=== PATIENT | female | born 2000 | race Caucasian/White ===

== ENCOUNTER 2025-08-04 11:22 | Emergency (ER) | payer OTHER, SELFPAY ==
[2025-08-04 11:26] VITALS: BP 110/80
--- NOTE | 2025-08-04 12:04 | ED.GENMED ---
History of Present Illness
General
Chief Complaint: Headache
Source: patient
Exam Limitations: none
Time Seen by Provider: 08/04/25 11:51
History of Present Illness
History of Present Illness:
25-year-old female presents complaining of persistent left-sided headache over the past 2 months. She recently moved here from [facility]. She was having headaches prior to moving here. She notes she is sensitive to light. There are times where
it is worse than others. She has tried [id number] medications without relief. No vision change. No fever or rash. No other medical problems.
Phy Exam
Physical Exam
Physical Exam:
General: Well-appearing female no acute respiratory distress
HEENT: Normal cephalic atraumatic pupils equal round react to light posterior pharynx patent no erythema or exudate neck is supple
Heart: Regular rate and rhythm
Lungs: Clear no wheeze
Abdomen is soft nontender
Neurologic exam: No nuchal rigidity or meningeal signs alert and oriented no focal deficit
Skin is warm no rash
Course
Orders/Labs/Results
Orders:
Orders
08/04/25 12:02
Diphenhydramine [Benadryl] 25 mg IV NOW STA
Prochlorperazine [Compazine] 10 mg IV NOW STA
08/04/25 12:03
CT Head W/o Iv Contrast Urgent
Comment:
Reason For Exam: headache
Test Result ONCE
08/04/25 12:16
Complete Blood Count/With Diff Urgent
Comprehensive Metabolic Panel Urgent
HCG, Serum Qualitative Screen Urgent
Sed Rate [Erythrocyte Sed Rate] Stat
Abnormal Lab Results
08/04/25
12:16
RBC 4.07 L 10^6/uL
(4.20-5.40)
Hct 36.4 L %
(37.0-47.0)
Chloride 111 H mmol/L
(98-107)
Creatinine 0.5 L mg/dL
(0.6-1.0)
08/04/25 12:16
08/04/25 12:16
Vital Signs
Initial and Last Documented VS:
Initial Vital Signs
Temp Pulse Resp BP Pulse Ox
98.2 F 74 16 110/80 98
08/04/25 11:26 08/04/25 11:26 08/04/25 11:26 08/04/25 11:26 08/04/25 11:26
Last Documented Vital Signs
Temp Pulse Resp BP Pulse Ox
98.2 F 56 16 115/66 99
08/04/25 11:26 08/04/25 13:51 08/04/25 13:51 08/04/25 13:51 08/04/25 13:51
MDM/Problems Addressed
Differential Diagnosis Includes:
Left-sided headache intermittent and ongoing over several months. Consider tension headache versus migraine. Will screen for temporal arteritis however unlikely in her age group no fever to suggest infectious source. Given severity and
persistence CT of the head was ordered. Will try to treat symptomatically
*Pulse Oximetry
SaO2: 98
Oxygen Mode of Delivery: Room air
Patient hypoxic: no
*Critical Care Note
Total Time (30-74mins, 75-104mins- exclusive of procedures): Not Applicable
Update Note
Update Note:
Patient feeling much better after treatment here. CT of the head negative. Suspect underlying migraine. No indication for admission. Stable for discharge
ED Attending Note
-
Portions of this chart may have been created with voice recognition software.� Occasional wrong word or��sound alike� substitutions may have occurred due to the inherent limitations of voice recognition software.
Discharge Plan
Departure
Patient Disposition: Home (Routine Discharge)
Date of Disposition: 08/04/25
Time of Disposition: 14:16
Patient with high blood pressure during this ER visit?: No
Discharge Problem:
Headache
Instructions: Migraines (DC)
Referrals:
NONE,* [Family Provider, Internal Medicine]
Activity Restrictions/Additional Instructions:
You may use Excedrin [id number] for headache. Return if worse otherwise follow-up with your doctor
Interventions
Interventions:
*Risk Screen - Suicide Last Done: 08/04/25 11:28
*General Assessment Last Done: 08/04/25 11:40
*Neglect/Abuse Screening Last Done: 08/04/25 11:28
*ED- Fall Risk Assessment Last Done: 08/04/25 11:40
ED- Neurological Assessment Last Done: 08/04/25 11:40
Discharge Date and Time
Print Language: TAMAZIGHT
[2025-08-04] MEDS: COMPAZINE 10 MG IV (12:23)
[2025-08-04] MEDS: BENADRYL 25 MG IV (12:23)
[2025-08-04 12:28] LABS: Hematocrit 36.4 % (37.0-47.0); Hemoglobin 12.0 g/dL (12.0-16.0); Mean Corp Hgb Conc. 33.0 g/dL (33.0-37.0); Mean Corpuscular Volume 89.4 fL (81.0-99.0); Nucleated Red Blood Cells % 0 %; Platelet Count 189 10^3/uL (130-400); Red Cell Dist. Width 12.2 % (11.5-14.5)
[2025-08-04 12:40] LABS: HCG, Serum Qualitative Screen Negative
[2025-08-04 12:44] LABS: ALT (SGPT) 17 U/L (0-35); AST (SGOT) 17 U/L (14-36); Albumin 4.0 g/dl (3.5-5.0); Alkaline Phosphatase 41 U/L (38-126); Blood Urea Nitrogen 9 mg/dl (7-17); Calcium 9.3 mg/dl (8.4-10.2); Carbon Dioxide 23 mmol/L (22-30); Chloride 111 mmol/L (98-107); Glucose 98 mg/dl (70-99); Potassium 3.8 mmol/L (3.5-5.1); Sodium 139 mmol/L (135-145); Total Protein 6.8 g/dl (6.3-8.2); eGFR > 60.00
[2025-08-04 13:51] VITALS: BP 115/66
== END 2025-08-04 14:38 | disposition home or self-care (01) ==
LOC: EMR 11:22
PROVIDERS: Physician Assistant; EMERGENCY PHYSICIAN Student in an Organized Health Care Education/Training Program
DX: R51.9 Headache, unspecified (principal)
CPT/HCPCS: 99284; 96374; 96375; 70450; 80053; 84703; 85025; 85652

== ENCOUNTER 2025-10-09 14:20 | Emergency (ER) | payer OTHER, SELFPAY ==
[2025-10-09 14:22] VITALS: BP 116/71
[2025-10-09 14:57] LABS: Hematocrit 39.1 % (37.0-47.0); Hemoglobin 12.9 g/dL (12.0-16.0); Mean Corp Hgb Conc. 33.0 g/dL (33.0-37.0); Mean Corpuscular Volume 87.9 fL (81.0-99.0); Nucleated Red Blood Cells % 0 %; Platelet Count 262 10^3/uL (130-400); Red Cell Dist. Width 12.6 % (11.5-14.5)
[2025-10-09 15:10] LABS: ALT (SGPT) 14 U/L (0-35); AST (SGOT) 17 U/L (14-36); Albumin 4.5 g/dl (3.5-5.0); Alkaline Phosphatase 60 U/L (38-126); Blood Urea Nitrogen 9 mg/dl (7-17); Calcium 9.6 mg/dl (8.4-10.2); Carbon Dioxide 25 mmol/L (22-30); Chloride 106 mmol/L (98-107); Glucose 83 mg/dl (70-99); Potassium 3.8 mmol/L (3.5-5.1); Sodium 137 mmol/L (135-145); Total Protein 8.0 g/dl (6.3-8.2); eGFR > 60.00
[2025-10-09 15:22] LABS: Beta HCG Quantitative < 2.39 mIU/ml
--- NOTE | 2025-10-09 15:27 | ED.GENMED ---
History of Present Illness
General
Chief Complaint: Vaginal Bleeding
Source: patient
Exam Limitations: none
Time Seen by Provider: 10/09/25 15:16
History of Present Illness
History of Present Illness:
25yoF with no significant past medical history presenting with her for evaluation of vaginal bleeding. She had a positive home test 4 days ago. She started to notice spotting today and became worried that she was having a
miscarriage. She denies any pain but has some mild cramping. No dizziness or syncope. She has a history of 1 prior term and 1 prior miscarriage. She received her OB care in [facility] with her prior pregnancies.
Phy Exam
General Physical Exam
General Presentation: well appearing and no apparent distress
General Skin: warm and dry
General Habitus: normal
General Mental: alert
ENT Exam
ENT Exam: normocephalic
Pulmonary Exam
Pulmonary Exam: no respiratory distress
Gastrointestinal Exam
Gastrointestinal Exam: non tender, soft and non distended
Neurological Exam
Neurological Exam: alert
[place] Coma Scale
Eye Opening: Spontaneous
Verbal Response: Oriented
Motor Response: Obeys Commands
GCS Total Score: 15
Skin Exam
Skin Exam: normal color and warm/dry
Psychiatric Exam
Psychiatric Exam: normal mood/affect
Course
Orders/Labs/Results
Orders:
Orders
10/09/25 14:39
Complete Blood Count/With Diff Urgent
Comprehensive Metabolic Panel Urgent
10/09/25 14:40
Beta HCG Quantitative Urgent
Is this a screen?: No
10/09/25 15:24
US Pelvis W Transvag Combined Urgent
Reason For Exam: vaginal bleeding, positive preg test 4 days ago
10/09/25 16:40
Type+Screen Urgent
Abnormal Lab Results
10/09/25
14:39
Absolute Monos (auto) 0.7 H 10^3/uL
(0.1-0.6)
Creatinine 0.5 L mg/dL
(0.6-1.0)
10/09/25 14:39
10/09/25 14:39
Vital Signs
Initial and Last Documented VS:
Initial Vital Signs
Temp Pulse Resp BP Pulse Ox
98.2 F 77 19 116/71 98
10/09/25 14:22 10/09/25 14:22 10/09/25 14:22 10/09/25 14:22 10/09/25 14:22
Last Documented Vital Signs
Temp Pulse Resp BP Pulse Ox
98.2 F 77 19 106/70 99
10/09/25 14:22 10/09/25 14:22 10/09/25 14:22 10/09/25 17:00 10/09/25 17:01
MDM/Problems Addressed
Differential Diagnosis Includes:
25yoF here with light vaginal bleeding that began today. Positive home test 4 days ago. She is well appearing with stable vital signs. Abdominal exam is benign. Differential diagnosis includes: chemical , menses, miscarriage,
ectopic
Initial ED plan: Check basic labs, quantitiative HCG, blood typing, and pelvic ultrasound.
*Pulse Oximetry
SaO2: 98
Patient hypoxic: no
*Critical Care Note
Total Time (30-74mins, 75-104mins- exclusive of procedures): Not Applicable
Update Note
Update Note:
Quantitative hCG is negative/undetectable. Ultrasound does not show any evidence of intrauterine . Discussed findings with patient and and they are aware of negative test. Suspect bleeding is from her menses. She was
advised to follow-up with her housekeeping lead. Patient was discharged in stable condition.
ED Attending Note
-
Portions of this chart may have been created with voice recognition software.� Occasional wrong word or��sound alike� substitutions may have occurred due to the inherent limitations of voice recognition software.
Discharge Plan
Departure
Patient Disposition: Home (Routine Discharge)
Date of Disposition: 10/09/25
Time of Disposition: 17:22
Patient with high blood pressure during this ER visit?: No
Discharge Problem:
Negative test, Vaginal bleeding
Instructions: tests
Referrals:
UNKNOWN - PT DOES,NOT KNOW [Family Provider]
Brianna Marroquin MD [Active, Gynecology]
Activity Restrictions/Additional Instructions:
Your blood test was negative today.
Please follow-up with your housekeeping lead.
Interventions
Interventions:
*Risk Screen - Suicide Last Done: 10/09/25 14:23
*General Assessment Last Done: 10/09/25 14:23
*Neglect/Abuse Screening Last Done: 10/09/25 14:23
*ED- Fall Risk Assessment Last Done: 10/09/25 15:45
*ED COVID-19 Vaccine History Last Done: 10/09/25 14:23
*ED Influenza Vaccine History Last Done: 10/09/25 14:23
*Nursing Disposition Last Done: 10/09/25 17:39
ED-Female Genitourinary Assessment Last Done: 10/09/25 15:46
Discharge Date and Time
Discharge Date/Time: 10/09/25 17:39
Print Language: LATVIAN
[2025-10-09 15:45] VITALS: BMI 20.4
[2025-10-09 15:48] VITALS: BP 105/72
[2025-10-09 16:01] VITALS: BP 101/75
[2025-10-09 17:00] VITALS: BP 106/70
== END 2025-10-09 17:39 | disposition home or self-care (01) ==
LOC: EMR 14:20
PROVIDERS: Emergency Medicine; EMERGENCY PHYSICIAN Emergency Medicine
DX: N93.9 Abnormal uterine and vaginal bleeding, unspecified (principal); Z32.02 Encounter for pregnancy test, result negative; Z87.59 Personal history of other complications of pregnancy, childbirth and the puerperium
CPT/HCPCS: 99284; 76830; 76856; 80053; 84702; 85025; 86850; 86900; 86901